=== PATIENT | female | born 1990 | race Caucasian/White ===

== ENCOUNTER → 2017-06-29 14:45 | Outpatient (CLI) | payer SELFPAY ==
[2017-06-30 11:59] LABS: Group B Strep DNA By PCR Negative (Negative); Internal Control PASS; Probe Check PASS; Specimen Processing Control PASS
== END ==
PROVIDERS: Visit Provider Obstetrics & Gynecology
DX: Z36.85 Encounter for antenatal screening for Streptococcus B (principal)
CPT/HCPCS: 87081; 87653

== ENCOUNTER 2017-07-28 05:30 | Inpatient (IN) | payer SELFPAY ==
[2017-07-28 05:50] VITALS: BMI 31.5
[2017-07-28] MEDS: Lactated Ringers 1,000 ML 50 ML IV (05:50)
[2017-07-28 06:26] LABS: Hematocrit 36.1 % (37-47); Hemoglobin 12.2 g/dl (12.0-15.0); Mean Corp Hgb Conc 33.8 g/gl (32-36); Mean Corpuscular Hgb 29.9 pg (27.0-32.0); Mean Corpuscular Volume 88.5 fL (81-99); Platelet Count 220 K/mm3 (150-450); RBC Distribution Width CV 13.5 % (11.6-14.6); RBC Distribution Width SD 43.7 fl (35.1-43.9); Red Blood Count 4.08 M/mm3 (4.2-5.4); White Blood Count 13.9 K/mm3 (4.4-11.0)
[2017-07-28 06:30] LABS: Scan Indicated on CBC? Y/N NO
--- NOTE | 2017-07-28 06:34 | PCM.OB.VAG ---
Vaginal Delivery Maternal Presentation: Active Labor 6-7 cm at presentation, painful UCs Amniotic Membrane Rupture Type: Artificial Amniotic Fluid Description: Clear Final KATE: 07/29/17 Final KATE Source: US <20 weeks Gestational age: 39 Weeks and 6 Days Date of Procedure: 07/28/17 Pre-Operative Diagnosis: 39 6/7 wk labor Post-Operative Diagnosis: same Surgery/ Procedure Performed: Spontaneous Vaginal Delivery Type of Anesthesia: None Description of Procedure: of a thakkar viable male over intact perineum. Head dleivered JOHN. No nuchal cord. Shoulders delivered easily. Baby with vigorous cry to maternal abdomen. OP and nares bulb suctioned on abdomen. Short cord, clamped x two and cut. Apgars 8/9 PP exam: 1st deg posterior perineum laceration, hemostatic and not repaired Placenta delivered by spont expulsion. 3v , normal appearing, intact with trailing membranes. EBL 250 cc Patient and infant tolerated delivery well. To recovery, stable condition Ray [place] counts correct Presentation: Vertex, JOHN Placental Delivery Description: Spontaneous, Expressed Placenta Disposition: [facility] Cord Vessel Description: 3 Vessels Cord Entanglement: None Estimated Blood Loss: 250 A gender: Male (1 minute): 8 (5 minute): 9 Episiotomy Description: None Laceration: Midline, Perineal Extension/lac, 1st degree Medications given after delivery: IV Pitocin Complications: None
--- NOTE | 2017-07-28 06:39 | PCM.DCVAG ---
Discharge Diet: No Restrictions Discharge Activity: May Shower, May Take a Tub Bath May resume sexual activity in: 4-6 weeks Additional Activity Instructions:: Nothing in the vagina for 4-6 weeks. You may return to work/school in 6 weeks. Additional Instructions: If you experience any of the following, contact your healthcare provider. Bleeding that soaks a pad every hour for 2 hours Fever 100.4 or higher Unrelieved abdominal pain Problems urinating (including inability to urinate or burning while urinating). Visual changes Severe headache Flu-like symptoms Pain or redness in one of both of your breasts Pain, warmth, tenderness or swelling in your legs, especially the calf area Frequent nausea and vomiting Symptoms of depression or anxiety If you experience any of the following, call 911 or go to the nearest Emergency Room. Chest pain Problems breathing Seizure activity Partial or complete paralysis of a body part, slurred speech, weakness or drooping of the face, or a sudden inability to walk or hold your balance Please Follow Up With: Harinder Alicia MD - [phone] When: Call to make an appointment with your doctor in 6 weeks. Proposed Discharge Date: 07/29/17
--- NOTE | 2017-07-28 06:40 | DCINST_ITS ---
Discharge Diet: No Restrictions Discharge Activity: May Shower, May Take a Tub Bath May resume sexual activity in: 4-6 weeks Additional Activity Instructions:: Nothing in the vagina for 4-6 weeks. You may return to work/school in 6 weeks. Additional Instructions: If you experience any of the following, contact your healthcare provider. * Bleeding that soaks a pad every hour for 2 hours * Fever 100.4 or higher * Unrelieved abdominal pain * Problems urinating (including inability to urinate or burning while urinating) . * Visual changes * Severe headache * Flu-like symptoms * Pain or redness in one of both of your breasts * Pain, warmth, tenderness or swelling in your legs, especially the calf area * Frequent nausea and vomiting * Symptoms of depression or anxiety If you experience any of the following, call 911 or go to the nearest Emergency Room. * Chest pain * Problems breathing * Seizure activity * Partial or complete paralysis of a body part, slurred speech, weakness or drooping of the face, or a sudden inability to walk or hold your balance Please Follow Up With: Harinder Alicia MD - [phone] When: Call to make an appointment with your doctor in 6 weeks. Proposed Discharge Date: 07/29/17
[2017-07-28] MEDS: Acetaminophen 325 MG Tablet PO (07:23)
[2017-07-28 11:10] VITALS: BP 98/56; PULSE 87; RESP 16; TEMP 36.6; O2SAT 96
[2017-07-28 16:00] VITALS: BP 112/71; PULSE 98; RESP 16; TEMP 36.4; O2SAT 97
[2017-07-28 19:25] VITALS: BP 118/66; PULSE 96; RESP 18; TEMP 36.5; O2SAT 96
[2017-07-28] MEDS: Ibuprofen 600 MG Tablet PO (21:42)
[2017-07-28 23:35] VITALS: BP 113/74; PULSE 81; RESP 18; TEMP 36.9; O2SAT 97
[2017-07-28] MEDS: Acetaminophen 500 MG Tablet 1000 MG PO (23:48)
[2017-07-29 04:00] VITALS: BP 112/70; PULSE 89; RESP 16; TEMP 36.4; O2SAT 97
[2017-07-29] MEDS: Ibuprofen 600 MG Tablet PO (05:17)
[2017-07-29 08:00] VITALS: BP 100/71; PULSE 73; RESP 16; TEMP 36; O2SAT 97
--- NOTE | 2017-07-29 08:08 | PCM.PN.OB ---
Subjective: No complaints. Breast feeding/pumping. Bleeding light. Objective: Afeb VSS - Physical Exam General: Alert, Oriented x3, Cooperative, No apparent distress Lungs: Clear to auscultation, Normal air movement Cardiovascular: Regular rate, Regular Rhythm Abdomen: Soft, Non Tender, Non-Distended, - - Fundus nontender Extremities: No edema Skin: No rashes Neurological: Neuro grossly intact Psych/Mental Status: Normal Affect Comment: Lochia light Vital Signs Temp Pulse Resp BP Pulse Ox 97.5 F L 89 16 112/70 97 07/29/17 04:00 07/29/17 04:00 07/29/17 04:00 07/29/17 04:00 07/29/17 04:00 Oxygen Delivery Method Room Air Weight: 166 lb 12.8 oz Body Mass Index (BMI) 31.5 Intake and Output for Last 24 Hours 07/27/17 07/28/17 07/29/17 23:59 23:59 23:59 Intake Total 156 / 156 Balance 156 / 156 Medical Necessity - Tobacco Use Smoking Status: Never smoker Assessment/Plan Doing well on PP day#1. Would like discharge today. Home going instructions and warnings given.
--- NOTE | 2017-07-29 08:09 | PCM.DC.SUM ---
Discharge Date and Diagnosis Date of Admission: 08/03/17 Date of Discharge: 07/29/17 - Primary Discharge Diagnosis Labor Hospital Course and Treatment Operations: None Procedures: - - Summary of Care Provided: The patient is a 27 year old F [admitted in labor. progressed to fully dilated then pushed for uncomplicated vaginal delivery. Discharged home on PP day#1.] Discharge Diet: No Restrictions Discharge Activity: May Shower, May Take a Tub Bath May resume sexual activity in: 4-6 weeks Additional Activity Instructions:: Nothing in the vagina for 4-6 weeks. You may return to work/school in 6 weeks. Call your doctor if your incision/area has: Sudden Increased Bleeding, Increased Pain/ Swelling, Increased Redness, Foul Smelling Discharge Call your doctor if you observe: Fever of 101 or Higher, Inability to urinate, Inability to have a bowel movement, Using more than one pad per hour, Shortness of breath, Chest pain Home Medications: Medications to take at Discharge NK [NK] 07/28/17 Other Amb Orders: Electric breast pump Location: None Selected Please Follow Up With: Harinder Alicia MD - [phone] When: 6 weeks Disposition: Home Minutes spent on discharge:: 15 Patient Condition:: Good Medical Necessity - Tobacco Use Smoking Status: Never smoker Meaningful Use Info Meaningful Use Diagnoses (Choose all that apply): None applicable
--- NOTE | 2017-07-29 08:12 | DS.PCM_ITS ---
Discharge Date and Diagnosis Date of Admission: 08/03/17 Date of Discharge: 07/29/17 - Primary Discharge Diagnosis Labor Hospital Course and Treatment Operations: None Procedures: - - Summary of Care Provided: The patient is a 27 year old F [admitted in labor. progressed to fully dilated then pushed for uncomplicated vaginal delivery. Discharged home on PP day#1.] Discharge Diet: No Restrictions Discharge Activity: May Shower, May Take a Tub Bath May resume sexual activity in: 4-6 weeks Additional Activity Instructions:: Nothing in the vagina for 4-6 weeks. You may return to work/school in 6 weeks. Call your doctor if your incision/area has: Sudden Increased Bleeding, Increased Pain/ Swelling, Increased Redness, Foul Smelling Discharge Call your doctor if you observe: Fever of 101 or Higher, Inability to urinate, Inability to have a bowel movement, Using more than one pad per hour, Shortness of breath, Chest pain Home Medications: Medications to take at Discharge NK [NK] 07/28/17 Other Amb Orders: Electric breast pump Location: None Selected Please Follow Up With: Harinder Alicia MD - [phone] When: 6 weeks Disposition: Home Minutes spent on discharge:: 15 Patient Condition:: Good Medical Necessity - Tobacco Use Smoking Status: Never smoker Meaningful Use Info Meaningful Use Diagnoses (Choose all that apply): None applicable
[2017-07-29 12:00] VITALS: BP 111/74; PULSE 84; RESP 16; TEMP 36.6; O2SAT 98
== END 2017-07-29 14:55 | disposition home or self-care (01) | DRG 775 ==
PROVIDERS: Obstetrics & Gynecology; Admitting Provider Obstetrics & Gynecology; Visit Provider Obstetrics & Gynecology
DX: O69.3XX0 Labor and delivery complicated by short cord, not applicable or unspecified (principal); Z3A.39 39 weeks gestation of pregnancy; Z37.0 Single live birth
CPT/HCPCS: 59025; 59050; 85027; 86850; 86900; 93460; 99218; J7120; A4216; G0378

== ENCOUNTER → 2017-09-07 11:00 | Outpatient (CLI) | payer SELFPAY ==
[2017-09-16 13:17] LABS: HPV APTIMA, High Risk Negative (Negative)
[2017-09-16 13:18] LABS: HPV Reflexed? YES, CHARGE PATIENT
== END ==
PROVIDERS: Visit Provider Obstetrics & Gynecology
DX: Z12.4 Encounter for screening for malignant neoplasm of cervix (principal)
CPT/HCPCS: 87624; 88175; G0145

== ENCOUNTER → 2018-12-14 11:09 | Outpatient (CLI) | payer OTHER, SELFPAY ==
[2018-12-20 16:40] LABS: HPV APTIMA, High Risk Negative (Negative); HPV Reflexed? YES, CHARGE PATIENT
== END ==
PROVIDERS: Referring Provider Obstetrics & Gynecology; Visit Provider Obstetrics & Gynecology
DX: Z12.4 Encounter for screening for malignant neoplasm of cervix (principal)
CPT/HCPCS: 87624; 88175; G0145

== ENCOUNTER → 2019-07-11 | Outpatient (CLI) | payer OTHER, SELFPAY ==
[2019-07-11 19:51] LABS: Chlamydia Trachomatis by PCR Negative (Negative); Neisserai gonorrhoeae by PCR Negative (Negative); Probe Check PASS; Sample Adequacy Control PASS; Specimen Processing Control PASS
== END | disposition home or self-care (01) ==
PROVIDERS: Visit Provider Obstetrics & Gynecology
DX: Z11.3 Encounter for screening for infections with a predominantly sexual mode of transmission (principal)
CPT/HCPCS: 87491; 87591

== ENCOUNTER → 2020-01-23 | Outpatient (CLI) | payer OTHER, SELFPAY | END | disposition home or self-care (01) | LOC: LABSPEC 01-24 09:52 | PROVIDERS: Visit Provider Obstetrics & Gynecology | DX: Z36.83 Encounter for fetal screening for congenital cardiac abnormalities (principal); Z36.85 Encounter for antenatal screening for Streptococcus B | CPT/HCPCS: 87081 ==

== ENCOUNTER 2020-02-14 03:15 | Inpatient (IN) | payer SELFPAY, OTHER ==
[2020-02-14] VITALS (22 sets, daily range): BP systolic 104–134; BP diastolic 50–78; PULSE 86–124; RESP 14–18; TEMP 36.4–37; O2SAT 96–99; BMI 34.1
[2020-02-14] MEDS: Lactated Ringers 1,000 ML 50 ML IV (03:25)
[2020-02-14 03:41] LABS: Absolute Lymphocyte Count 1.17 X10^3/uL (0.83-4.51); Absolute Neutrophil Count 10.8 X10^3/uL (2.0-7.7); Basophil# 0.02 X10^3/uL; Basophil% 0.2 % (0-1); Hematocrit 35.2 % (37-47); Hemoglobin 11.8 g/dL (12.0-15.0); Lymphocyte # 1.17 X10^3/ul (4.0); Lymphocyte % 9.3 % (19-41); Mean Corp Hgb Conc 33.5 g/dL (32-36); Mean Corpuscular Hgb 29.9 pg (27.0-32.0); Mean Corpuscular Volume 89.3 fL (81-99); Mean Platelet Vol. 9.2 fl (6.2-12.0); Monocyte# 0.48 X10^3/uL; Monocyte% 3.8 % (0-10); NRBC Flagged by Analyzer 0 % (0-5); Neutrophil # 10.81 X10^3/uL (2.7-7.7); Neutrophil % 86.4 % (47-70); Platelet Count 239 K/mm3 (150-450); RBC Distribution Width CV 13.4 % (11.6-14.6); RBC Distribution Width SD 43.5 fl (35.1-43.9); Red Blood Count 3.94 M/mm3 (4.2-5.4); White Blood Count 12.5 K/mm3 (4.4-11.0)
--- NOTE | 2020-02-14 06:22 | HP.PCM_ITS ---
History and Physical Date of Admission: 02/14/20 29 yo at 39/4, KATE 02/17/20 by 8w US, admitted for labor. Patient reports some contractions and has history of fast labor. Denies LOF, VB. +FM. Denies MORALES, vision changes, chest pain, dyspnea, nausea/emesis. This is complicated by: history of PTD, history of fast labors Obstetrical History G1: 36w G2: 39w G3: current Past Medical History Denies Medications PNV Past Surgical History Leg surgery with pin Social History Tobacco use: denies Alcohol use: denies Illicit drug use: denies Labs Blood type: A pos Rubella: immune Hep B: neg HIV: neg RPR: nonreaactive GBS: neg 01/28 Allergies NKDA Review of Systems General: alert and oriented HEENT: denies change of vision Heart/lungs: denies CP, SOB GI: denies nausea, vomiting, dysuria, diarrhea MSK: denies calf pain, tenderness Physical Exam Vital Signs Temp Pulse BP Pulse Ox 02/14/20 05:43 103 H 117/62 97 02/14/20 04:53 106 H 119/70 98 02/14/20 03:46 103 H 114/69 02/14/20 03:45 97 02/14/20 02:45 113 H 119/67 97 02/14/20 01:31 124 H 117/64 97 02/14/20 00:26 98.0 F 118 H 126/75 H 98 General: a&o x3, NAD HEENT: normocephalic, atraumatic Cardio: no JVD Resp: no increased work in breathing Abdomen: soft, gravid, nontender Extremities: minimal edema CE: 5/70/-2, AROM this morning clear fluid FHT: 130/mod [place]/+accel/no decel [place]: irregular Labs Laboratory Results - last 24 hr 02/14/20 02/14/20 03:25 03:25 WBC 12.5 H RBC 3.94 L Hgb 11.8 L Hct 35.2 L MCV 89.3 MCH 29.9 MCHC 33.5 RDW Std Deviation 43.5 RDW Coeff of [place] 13.4 Plt Count 239 MPV 9.2 Immature Gran % (Auto) 0.300 Neut % (Auto) 86.4 H Lymph % (Auto) 9.3 L [place] % (Auto) 3.8 Eos % (Auto) 0.0 Baso % (Auto) 0.2 Absolute Neuts (auto) 10.8 H Absolute Lymphs (auto) 1.17 Nucleated RBC % 0 Blood Type A POSITIVE Antibody Screen NEGATIVE Assessment & Plan 29 yo at 39/4, KATE 02/17/20 by 8w US, admitted for labor. This is complicated by: history of PTD, history of fast labors. -Admit to labor and delivery -GBS negative. Routine orders -AROMed this morning
[2020-02-14] MEDS: Oxytocin 30 units/NS 500 ml 30 UNITS/500 ML IV.SOLN 334 UNITS IV (09:21)
--- NOTE | 2020-02-14 09:43 | PCM.OPRPT ---
Problem List (1) 39 weeks gestation of Status: Acute (2) (spontaneous vaginal delivery) Status: Acute Vaginal Delivery Maternal Presentation: Active Labor Method of Induction: Amniotomy, - - amniotomy for augmentation Amniotic Membrane Rupture Type: Artificial Rupture of Membrane time: 81202/14/20 Amniotic Fluid Description: Clear Final KATE: 02/17/20 Gestational age: 39 Weeks and 4 Days Date of Procedure: 02/14/20 Pre-Operative Diagnosis: 39 4/7 wga Post-Operative Diagnosis: 39 4/7wga, Surgery/ Procedure Performed: - - Placenta Type of Anesthesia: None - Placenta delivery Description of Procedure: Called for delivery and on arrival approximately 2 minutes later vigorous female infant was on maternal abdomen . Per MAITE Tucker report patient delivered in cephalic presentation through tight nuchal cord that was reduced following delivery and she had doubly clamped and cut the cord after 1 minute of life. Infant was attended by nursery personnel. IV pitocin was started. The placenta delivered spontaneously and appeared intact on inspection at 21 minutes following delivery. Perineum intact. Sponge counts correct x 2. Presentation: Vertex Placental Delivery Description: Spontaneous Placenta Disposition: [facility] Cord Vessel Description: 3 Vessels Nuchal Cord Compression: Without compression Cord Entanglement: Around neck x 1, tight Estimated Blood Loss: 250 ml A gender: Female (1 minute): 8 (5 minute): 9 Episiotomy Description: None Laceration: None Medications given after delivery: IV Pitocin Complications: None
[2020-02-14] MEDS: 0.9% Saline Lock 10 ML Syringe IV (12:00)
[2020-02-14] MEDS: Prenatal Vits Tablet 1 TABLET PO (13:11)
[2020-02-14] MEDS: Ibuprofen 600 MG Tablet PO ×2 (13:11→20:20)
[2020-02-15 04:16] VITALS: BP 122/74; PULSE 81; RESP 16; TEMP 36.1; O2SAT 100
[2020-02-15] MEDS: Ibuprofen 600 MG Tablet PO ×2 (04:22→10:45)
[2020-02-15 08:45] VITALS: BP 101/49; PULSE 93; RESP 16; TEMP 36.2; O2SAT 97
--- NOTE | 2020-02-15 09:52 | PCM.PN.OB ---
Patient Problems: Active and Suspected Problems 39 weeks gestation of (Acute) (spontaneous vaginal delivery) (Acute) Subjective: No overnight complaints. Pain well controlled. Minimal lochia. - Physical Exam Vitals/I&O's: Vital Signs Temp Pulse Resp BP Pulse Ox 97.2 F L 93 16 101/49 L 97 02/15/20 08:45 02/15/20 08:45 02/15/20 08:45 02/15/20 08:45 02/15/20 08:45 Oxygen Delivery Method Room Air Weight: 180 lb 12.8 oz Body Mass Index (BMI) 34.1 Intake and Output for Last 24 Hours 02/13/20 02/14/20 02/15/20 23:59 23:59 23:59 Intake Total 1696.67 / 1696.67 Output Total 600 / 600 Balance 1096.67 / 1096.67 General: Alert, Oriented x3, Cooperative, No apparent distress HEENT: Atraumatic, PERRLA, Normocephalic Oral: Moist Mucosa Neck: Supple Abdomen: Soft, Non Tender, - - Fundus firm and below umbilicus Extremities: No clubbing, No cyanosis, No edema Neurological: Neuro grossly intact Psych/Mental Status: Normal Affect, Appropriate, Alert and oriented to time, place, person, mood and affect Microbiology Past 72 Hours 02/14/20 04:10 Mucosa - Nose SARS-CoV-2 Antigen (Rapid) - Final Current Medications Acetaminophen (Acetaminophen 325 Mg Tablet) 325 - 650 mg PO Q4H PRN PRN PRN Reason: Pain Score 1-3 Bisacodyl (Bisacodyl 10 Mg Suppository) 10 mg RECTAL UD PRN PRN Reason: If no BM Dibucaine (Dibucaine 30 Gm Tube) 1 applic TOPICAL TID PRN PRN; Protocol PRN Reason: Discomfort Hydrocortisone (Hydrocortisone 2.5% Crm) 1 applic TOPICAL TID PRN PRN; Protocol PRN Reason: Discomfort Ibuprofen (Ibuprofen 600 Mg Tablet) 600 mg PO Q6H PRN PRN PRN Reason: Pain Score 1-10 Last Admin: 02/15/20 04:22 Dose: 600 mg Documented by: Methylergonovine Maleate (Methylergonovine 0.2 Mg/Ml Ampul) 0.2 mg IM X1 PRN PRN Reason: Excess bleeding/uterine atony Ondansetron HCl (Ondansetron 4 Mg/2 Ml Vial) 4 mg IV Q4H PRN PRN PRN Reason: NAUSEA Multivit/Folic Acid/Iron ( Vits Tablet) 1 tablet PO DAILY SCARLETT Last Admin: 02/14/20 13:11 Dose: 1 tablet Documented by: Senna/Docusate Sodium (Senna/Docusate Sodium 1 Tablet) 1 - 2 tablet PO DAILY PRN PRN PRN Reason: Constipation Simethicone (Simethicone 80 Mg Tablet) 80 mg PO PCHS PRN PRN Reason: Indigestion/Stomach pain Sodium Chloride (0.9% Saline Lock 10 Ml Syringe) 5 - 15 ml IV UD PRN PRN Reason: SALINE FLUSH Last Admin: 02/14/20 12:00 Dose: 10 ml Documented by: Medical Necessity - Tobacco Use Smoking Status: Never smoker Assessment/Plan All Active Problems 39 weeks gestation of (Acute) (spontaneous vaginal delivery) (Acute) day 1. Breast-feeding. Pain well controlled. Okay to discharge home today if okay with pharmacy resource tech.
--- NOTE | 2020-02-15 09:53 | DCINST_ITS ---
Discharge Diet: No Restrictions Discharge Activity: Return to Normal Activity, No Restrictions, May Drive, May Shower May resume sexual activity in: 2 weeks Weight Bearing Status: Weight bearing as tolerated Call your doctor if your incision/area has: Foul Smelling Discharge Call your doctor if you observe: Fever of 101 or Higher, Shortness of breath, Chest pain Additional Instructions: If you experience any of the following, contact your healthcare provider. * Bleeding that soaks a pad every hour for 2 hours * Fever 100.4 or higher * Unrelieved incision or abdominal pain * Swelling, redness, discharge or bleeding from your incision or episiotomy site * Your incision begins to separate * Problems urinating (including inability to urinate or burning while urinating). * Visual changes * Severe headache * Flu-like symptoms * Pain or redness in one of both of your breasts * Pain, warmth, tenderness or swelling in your legs, especially the calf area * Frequent nausea and vomiting * Symptoms of depression or anxiety If you experience any of the following, call 911 or go to the nearest Emergency Room. * Chest pain * Problems breathing * Seizure activity * Partial or complete paralysis of a body part, slurred speech, weakness or drooping of the face, or a sudden inability to walk or hold your balance Allergies/Adverse Reactions: Allergies No Known Allergies Allergy (Verified 02/14/20 00:21) Medications to take at Discharge Pnv No.95/Ferrous Fum/Folic AC [ Caplet] 1 tab PO DAILY 02/14/20 Please Follow Up With: Herman Tucker MD When: 4 to 6 weeks Primary Care Physician: Care Physician,No Primary [Primary Care Provider] - Test Results: Test results from this visit will be discussed in further detail at your follow- up appointment, if applicable.
--- NOTE | 2020-02-15 09:53 | PCM.DCVAG ---
Discharge Diet: No Restrictions Discharge Activity: Return to Normal Activity, No Restrictions, May Drive, May Shower May resume sexual activity in: 2 weeks Weight Bearing Status: Weight bearing as tolerated Call your doctor if your incision/area has: Foul Smelling Discharge Call your doctor if you observe: Fever of 101 or Higher, Shortness of breath, Chest pain Additional Instructions: If you experience any of the following, contact your healthcare provider. Bleeding that soaks a pad every hour for 2 hours Fever 100.4 or higher Unrelieved incision or abdominal pain Swelling, redness, discharge or bleeding from your incision or episiotomy site Your incision begins to separate Problems urinating (including inability to urinate or burning while urinating). Visual changes Severe headache Flu-like symptoms Pain or redness in one of both of your breasts Pain, warmth, tenderness or swelling in your legs, especially the calf area Frequent nausea and vomiting Symptoms of depression or anxiety If you experience any of the following, call 911 or go to the nearest Emergency Room. Chest pain Problems breathing Seizure activity Partial or complete paralysis of a body part, slurred speech, weakness or drooping of the face, or a sudden inability to walk or hold your balance Allergies/Adverse Reactions: Allergies No Known Allergies Allergy (Verified 02/14/20 00:21) Medications to take at Discharge Pnv No.95/Ferrous Fum/Folic AC [ Caplet] 1 tab PO DAILY 02/14/20 Please Follow Up With: Herman Tucker MD When: 4 to 6 weeks Primary Care Physician: Care Physician,No Primary [Primary Care Provider] - Test Results: Test results from this visit will be discussed in further detail at your follow-up appointment, if applicable.
[2020-02-15] MEDS: Prenatal Vits Tablet 1 TABLET PO (10:45)
[2020-02-15 12:32] VITALS: BP 105/59; PULSE 74; RESP 16; TEMP 36.1
== END 2020-02-15 13:40 | disposition home or self-care (01) | DRG 807 ==
LOC: WPOUT 03:21 → WP 03:21
PROVIDERS: Student in an Organized Health Care Education/Training Program; Admitting Provider Obstetrics & Gynecology; Referring Provider Obstetrics & Gynecology; Visit Provider Obstetrics & Gynecology
DX: O69.1XX0 Labor and delivery complicated by cord around neck, with compression, not applicable or unspecified (principal); Z3A.39 39 weeks gestation of pregnancy; Z37.0 Single live birth
CPT/HCPCS: 59025; 59050; 85025; 86850; 86900; 86901; 87426; 99218; J7120; A4216; G0378